=== PATIENT | female | born 1955 | race Asian ===

== ENCOUNTER 2016-05-19 | Outpatient (CLI) | payer OTHER, BC | END 2016-05-19 06:46 | disposition critical access hospital (66) | CPT/HCPCS: A0425; A0429 ==

== ENCOUNTER 2016-05-19 07:00 | Emergency (ER) | payer OTHER, BC ==
[2016-05-19] MEDS ORDERED: IOPAMIDOL-300 100 ML VIAL IVP ONE (08:38)
[2016-05-19] MEDS ORDERED: KETOROLAC 60 MG/2 ML VIAL IM STA (09:17)
[2016-05-19] MEDS ORDERED: KETOROLAC 60 MG/2 ML VIAL ONE (09:23)
== END 2016-05-19 10:20 | disposition home or self-care (01) ==
DX: S20.212A Contusion of left front wall of thorax, initial encounter (principal); V49.40XA Driver injured in collision with unspecified motor vehicles in traffic accident, initial encounter
CPT/HCPCS: 71260; 96372; 99284; Q9967

== ENCOUNTER 2016-06-08 14:10 | Outpatient (CLI) | payer BC | END 2016-06-08 14:11 | disposition home or self-care (01) | DX: M79.662 Pain in left lower leg (principal); M51.34 Other intervertebral disc degeneration, thoracic region; M47.812 Spondylosis without myelopathy or radiculopathy, cervical region; M54.2 Cervicalgia ==